=== PATIENT | male | born 1965 | race Two or more races ===

== ENCOUNTER 2019-07-16 07:56 | Emergency (ER) | payer MEDICAID ==
[~2019-07-16] VITALS: Ht 152.4 cm; Wt 53.5 kg
[~2019-07-16 07:56] MED LIST: Folic Acid PO; Lactose-Free Food PO; THIA100T13 PO
--- NOTE | 2019-07-16 08:03 | NUR ---
PT [id number] TO THE ED C/O LEFT LEG PAIN. PT ALERT AND AWAKE, VSS, BREATHING EVEN AND UNLABORED ON ROOM AIR. PT CONNECTED TO THE MONITOR AND POX.
[2019-07-16] MEDS ORDERED: ACETAMINOPHEN ES 500 MG TABLET ONE (08:26)
[2019-07-16] MEDS ORDERED: ACETAMINOPHEN ES 500 MG TABLET PO ONE (08:30)
--- NOTE | 2019-07-16 08:40 | NUR ---
Social service consult requested by Dr. Joya for homelessness. Pt. is a 54 year old male who was brought to [facility] by ambulance due to a fall and has a sore on his left leg. Patient also states that he has an inguinal hernia. SW met with the pt. bedside. Pt. is alert and oriented x 4. Pt. is cooperative with SW. Pt. states he is homeless and needs resources. Pt. receives GR and Food stamps monthly. Pt. denies drug and alcohol use. Pt. smokes 1/2 pack of cigarettes per day. Pt. denies any psychiatric diagnosis. Pt. states he is not suicidal or homicidal and denies visual/auditory hallucinations at this time. Pt. has a legal officer but will not disclose as to why. Pt. was provided with the following homeless retirement and homeless directory resources: [facility] located at [address] ; [facility] [place], [address] [place] ; [facility] [place], [address] [facility] [address] ; [facility] Homeless Resource Directory which includes food stamps, transitional housing, showers and hot meals etc; Mental Health clinics such as [facility] ; [facility] ; Health clinics;[facility] and Alcohol treatment centers such as [facility], ; [facility] Substance Abuse Hotline and [facility] . Pt. was provided with breakfast and TAP card. Homeless Patient Wavier Form was signed by the pt. and placed in pt's chart. No other social service needs are requested at this time. Pt's RN and Dr. Joya have been updated with pt's discharge plan.
[2019-07-16 08:49] VITALS: BP 129/78
== END 2019-07-16 08:57 | disposition home or self-care (01) ==
LOC: ER 07:56
DX: M79.605 Pain in left leg (principal); K40.90 Unilateral inguinal hernia, without obstruction or gangrene, not specified as recurrent; F17.200 Nicotine dependence, unspecified, uncomplicated; Z59.0 Homelessness; Z98.890 Other specified postprocedural states; Z79.899 Other long term (current) drug therapy; W10.8XXA Fall (on) (from) other stairs and steps, initial encounter; Y93.89 Activity, other specified; Y92.89 Other specified places as the place of occurrence of the external cause; Y99.8 Other external cause status
CPT/HCPCS: 99283; A6403

== ENCOUNTER 2019-07-18 13:16 | Emergency (ER) | payer MEDICAID, OTHER ==
[~2019-07-18] VITALS: Ht 170.2 cm; Wt 65.8 kg
[2019-07-18 13:24] VITALS: BP 150/91
--- NOTE | 2019-07-18 13:50 | NUR ---
PATIENT DENIES BEING HOMELESS, GAVE AN ADDRESS.
== END 2019-07-18 14:00 | disposition home or self-care (01) ==
LOC: ER 13:16
DX: S50.812A Abrasion of left forearm, initial encounter (principal); F17.200 Nicotine dependence, unspecified, uncomplicated; Z98.890 Other specified postprocedural states; Z59.0 Homelessness; W01.0XXA Fall on same level from slipping, tripping and stumbling without subsequent striking against object, initial encounter; Y93.89 Activity, other specified; Y92.89 Other specified places as the place of occurrence of the external cause; Y99.8 Other external cause status
CPT/HCPCS: 99283; A6403

== ENCOUNTER 2019-10-13 17:28 | Emergency (ER) | payer OTHER ==
[~2019-10-13] VITALS: Ht 177.8 cm; Wt 74.8 kg
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
[2019-10-13] MEDS ORDERED: CLINDAMYCIN HCL 150 MG CAPSULE PO ONE ×2 (18:30→18:41)
--- NOTE | 2019-10-13 18:37 | NUR ---
PT DENIES WOUND CARE.
--- NOTE | 2019-10-13 18:45 | NUR ---
Patient discharged to home in stable condition. Written and verbal after care instructions given. Patient verbalizes understanding of instruction. PT refused meds and wound care. vss. Pt okay for booking.
[2019-10-13 18:47] VITALS: BP 124/82
== END 2019-10-13 18:49 ==
LOC: ER 17:28
DX: L03.114 Cellulitis of left upper limb (principal); L03.113 Cellulitis of right upper limb; F17.200 Nicotine dependence, unspecified, uncomplicated; Z98.890 Other specified postprocedural states; Z59.0 Homelessness; Z79.899 Other long term (current) drug therapy